=== PATIENT | male | born 1950 | race Caucasian/White ===

== ENCOUNTER → 2017-11-09 09:31 | Outpatient (CLI) | payer MEDICARE, OTHER, SELFPAY ==
[2017-11-09 12:27] LABS: Anion Gap 8 (5-15); BUN 17 mg/dL (7-18); BUN/Creat Ratio 14.3 RATIO (10-20); Calcium,Total 8.8 mg/dL (8.5-10.1); Chloride 112 mmol/L (98-107); Cholesterol 176 mg/dL (200); Creatinine, Serum 1.19 mg/dL (0.70-1.30); EST Glomerular Filtration Rate 65 mL/min (>60); Est Glom Filt Rate - Afr Amer 78 mL/min (>60); Glucose 92 mg/dL (74-106); High Density Lipoprotein 38 mg/dL; Potassium 4.2 mmol/L (3.5-5.1); Sodium Level 143 mmol/L (136-145); Triglycerides 205 mg/dL; Very Low Density Lipoprotein 41 mg/dL (5-40)
== END ==
PROVIDERS: Family Provider Family Medicine; PCP Family Medicine; Visit Provider Family Medicine
DX: I10 Essential (primary) hypertension (principal)
CPT/HCPCS: 36415; 80048; 80061

== ENCOUNTER → 2017-12-17 09:09 | Outpatient (CLI) | payer MEDICARE, OTHER, SELFPAY ==
[2017-12-17 11:06] LABS: Anion Gap 5 (5-15); BUN 21 mg/dL (7-18); BUN/Creat Ratio 14.4 RATIO (10-20); Calcium,Total 9.2 mg/dL (8.5-10.1); Chloride 108 mmol/L (98-107); Creatinine, Serum 1.46 mg/dL (0.70-1.30); EST Glomerular Filtration Rate 51 mL/min (>60); Est Glom Filt Rate - Afr Amer 62 mL/min (>60); Glucose 91 mg/dL (74-106); Potassium 4.2 mmol/L (3.5-5.1); Sodium Level 140 mmol/L (136-145)
== END ==
PROVIDERS: Family Provider Family Medicine; PCP Family Medicine; Visit Provider Family Medicine
DX: I10 Essential (primary) hypertension (principal)
CPT/HCPCS: 36415; 80048

== ENCOUNTER → 2018-06-14 08:56 | Outpatient (CLI) | payer MEDICARE, OTHER, SELFPAY ==
[2018-06-14 12:50] LABS: Anion Gap 13 (5-15); BUN 21 mg/dL (7-18); BUN/Creat Ratio 12.1 RATIO (10-20); Calcium,Total 8.8 mg/dL (8.5-10.1); Chloride 107 mmol/L (98-107); Cholesterol 179 mg/dL (200); Creatinine, Serum 1.73 mg/dL (0.70-1.30); EST Glomerular Filtration Rate 42 mL/min (>60); Est Glom Filt Rate - Afr Amer 51 mL/min (>60); Glucose 91 mg/dL (74-106); High Density Lipoprotein 37 mg/dL; Sodium Level 142 mmol/L (136-145); Triglycerides 135 mg/dL; Very Low Density Lipoprotein 27 mg/dL (5-40)
== END ==
PROVIDERS: Family Provider Family Medicine; PCP Family Medicine; Visit Provider Family Medicine
DX: I10 Essential (primary) hypertension (principal)
CPT/HCPCS: 36415; 80048; 80061

== ENCOUNTER → 2018-12-27 08:20 | Outpatient (CLI) | payer MEDICARE, OTHER, SELFPAY ==
[2018-12-27 10:35] LABS: Anion Gap 9 (5-15); BUN 27 mg/dL (7-18); BUN/Creat Ratio 13.9 RATIO (10-20); Calcium,Total 8.9 mg/dL (8.5-10.1); Chloride 108 mmol/L (98-107); Creatinine, Serum 1.94 mg/dL (0.70-1.30); EST Glomerular Filtration Rate 37 mL/min (>60); Est Glom Filt Rate - Afr Amer 44 mL/min (>60); Glucose 92 mg/dL (74-106); Potassium 4.1 mmol/L (3.5-5.1); Sodium Level 143 mmol/L (136-145)
== END ==
PROVIDERS: Family Provider Family Medicine; PCP Family Medicine; Visit Provider Family Medicine
DX: I10 Essential (primary) hypertension (principal)
CPT/HCPCS: 36415; 80048

== ENCOUNTER 2019-05-16 11:37 | Observation (INO) | payer MEDICARE, OTHER, SELFPAY ==
[2019-05-16] VITALS (11 sets, daily range): BP systolic 89–127; BP diastolic 64–77; PULSE 69–122; RESP 16–33; TEMP 36.7–36.8; O2SAT 94–99; BMI 28.4; BMI 26.5; BMI 26.6
--- NOTE | 2019-05-16 11:54 | EKG12_ITS ---
Test Reason : AM Blood Pressure : / mmHG Vent. Rate : 065 BPM Atrial Rate : 065 BPM P-R Int : 238 ms QRS Dur : 078 ms QT Int : 388 ms P-R-T Axes : 079 027 034 degrees QTc Int : 403 ms Sinus rhythm with 1st degree A-V block Low voltage QRS (Limb Leads) Confirmed by KAYE KLEIN, ODELL ([id number]), news assignment editor CHELSEA HOLMAN ([id number]) on 05/18/2019 10:01:33 AM Referred By: Nayan Woods Confirmed By:ODELL RESTREPO MD
--- NOTE | 2019-05-16 11:54 | RAD_ITS ---
STUDY: X-RAY CHEST REASON FOR EXAM: Male, 69 years old. Chest pain. TECHNIQUE: Single AP portable view of the chest. COMPARISON: None. FINDINGS: EKG electrodes are seen. The lungs are clear and expanded. There is no demonstrated pleural abnormality. Normal size heart. Normal mediastinum and rashida. Normal visualized pulmonary arteries. There is atherosclerotic tortuosity of the aortic arch and descending thoracic aorta. There is a mild levoscoliosis of the thoracic spine. Normal visualized ribs, clavicles, and shoulders. There is no demonstrated abnormality of the visualized soft tissue structures of the upper abdomen. RAD/Chest 1 View (Portable) IMPRESSION: No acute abnormality is seen. Electronically Signed: Johnathan Calderon, at 12:36 EDT , Service support ,
[2019-05-16 12:13] LABS: International Normalized Ratio 1.1; Prothrombin Time (Protime)PT. 13.5 SECONDS (11.7-14.9)
[2019-05-16 12:14] LABS: Partial Thromboplast Time 31.4 Seconds (24.1-36.2)
[2019-05-16 12:19] LABS: Absolute Lymphocyte Count 3.29 X10^3/uL (0.83-4.51); Absolute Neutrophil Count 5.8 X10^3/uL (2.0-7.7); Basophil# 0.03 X10^3/uL; Basophil% 0.3 % (0-1); Eosinophil# 0.02 X10^3/uL; Eosinophils% 0.2 % (0-5); Hematocrit 41.1 % (40-54); Hemoglobin 14.9 g/dL (13.0-16.5); Lymphocyte # 3.29 X10^3/ul (4.0); Lymphocyte % 33.9 % (19-41); Mean Corp Hgb Conc 36.3 g/dL (32-36); Mean Corpuscular Hgb 32.9 pg (27.0-32.0); Mean Corpuscular Volume 90.7 fL (80-94); Mean Platelet Vol. 9.5 fl (6.2-12.0); Monocyte# 0.52 X10^3/uL; Monocyte% 5.4 % (0-10); NRBC Flagged by Analyzer 0 % (0-5); Neutrophil # 5.81 X10^3/uL (2.7-7.7); Neutrophil % 59.8 % (47-70); Platelet Count 299 K/mm3 (150-450); RBC Distribution Width CV 12.7 % (11.6-14.6); RBC Distribution Width SD 42.4 fl (35.1-43.9); Red Blood Count 4.53 M/mm3 (4.6-6.2); White Blood Count 9.7 K/mm3 (4.4-11.0)
[2019-05-16] MEDS: 0.9% Normal Saline 1,000 ML 150 ML IV (12:25)
[2019-05-16] MEDS: LORazepam 2 MG/ML Syringe 0.5 MG IV (12:32)
--- NOTE | 2019-05-16 12:35 | ED.VIS.GEN ---
History of Present Illness Chief Complaint: Chest Pain Informant: Patient Onset: Today Context: Gradual Onset Timing: Continuous Current Severity: Moderate Maximum Severity: Moderate Narrative: The patient presents to the emergency department chest pain shortness of breath. Patient is a 69-year-old male medical history significant for hypertension. He states that he has been under a significant amount of stress lately. He states that today, he had to go to court. His has recently passed and there is a lot of questions over her will with her children which are his steps to the children. He states he is been significantly stressed. He went to the court house today and was having substernal chest heaviness and felt like he could not catch his breath. He states that he got up late be related to his anxiety. He is never had symptoms like this before. Squad was called. The patient was found to be tachycardic in an irregular rhythm. He denies any history of prior atrial fibrillation. He was given nitro which helped his pain. He states that he still feels persistently anxious. He has no history of coronary vascular disease. He does smoke. Prior similar symptoms: No Recent Illness/Hospitalization: No Past Medical History - Allergies and Home Meds Allergies/Adverse Reactions: Allergies No Known Allergies Allergy (Verified 05/16/19 11:38) Prior records reviewed: Yes Past Medical History: - - Hypertension Smoking Status: Current every day smoker - Family History Paternal Family History: Reports: Hypertension, - - no CAD Review of Systems General: Denies: Chills, Fever, Sweats Eyes: Denies: Visual changes - bilaterally, Diplopia ENT: Denies: Rhinorrhea, Sore throat Cardiovascular: Denies: Chest pain, Palpitations Respiratory: Denies: Dyspnea, Cough, Dyspnea on exertion Gastrointestinal: Denies: Abdominal pain, Nausea, Vomiting, Diarrhea, Melena, Hematochezia Genitourinary: Denies: Dysuria, Hematuria, Frequency Musculoskeletal: Denies: Back pain, Extremity Pain Skin: Denies: Rash, Wounds Neurological: Denies: Headache, Weakness, Numbness Physical Exam Vital Signs/Narrative: Vital Signs Temp Pulse Resp BP Pulse Ox 05/16/19 12:23 98 05/16/19 11:45 114 H 26 H 111/66 99 05/16/19 11:38 98.2 F 122 H 33 H 89/67 L 98 Inital Vital Signs reviewed: Yes General: Well nourished, Well developed, No Acute Distress Head: Normocephalic, Atraumatic Eyes: Perrl, EOMI ENT: Moist mucous membranes, No rhinorrhea Neck: Supple, Nontender Cardiovascular: No murmurs, Irregular, Tachycardia Respiratory: No distress, CTA bilaterally, Chest nontender Abdomen: Soft, Nontender, Nondistended, Normal bowel sounds Back: Nontender, Normal Inspection Extremities: Nontender, No edema Skin: Normal color, No rash Neurological: Alert, Oriented x3, Cranial nerves II-XII grossly intact, Normal Strength, Normal Sensation Psychological: Normal affect, Normal Mood Diagnostic/Tx/Re-eval Chest X-Ray - ED: 1 View, Normal, Heart, Lungs, Mediastinum Clinical Impression(s) from Imaging Studies Chest X-Ray 05/16/19 11:54 IMPRESSION: No acute abnormality is seen. Electronically Signed: Johnathan Kvng, at 12:36 EDT , Service support , Abnormal Lab Results 05/16/19 05/16/19 05/16/19 11:45 11:45 11:45 WBC 9.7 RBC 4.53 L Hgb 14.9 Hct 41.1 MCV 90.7 MCH 32.9 H MCHC 36.3 H RDW Std Deviation 42.4 RDW Coeff of Edi 12.7 Plt Count 299 MPV 9.5 Immature Gran % (Auto) 0.400 Neut % (Auto) 59.8 Lymph % (Auto) 33.9 [place] % (Auto) 5.4 Eos % (Auto) 0.2 Baso % (Auto) 0.3 Absolute Neuts (auto) 5.8 Absolute Lymphs (auto) 3.29 Nucleated RBC % 0 PT 13.5 INR 1.1 APTT 31.4 Sodium 134 L Potassium 2.7 L* Chloride 104 Carbon Dioxide 20.0 L Anion Gap 10 BUN 20 H Creatinine 1.90 H Estim Creat Clear Calc 36.69 Est GFR (MDRD) Af Amer 45 L Est GFR (MDRD) Non-Af 38 L BUN/Creatinine Ratio 10.5 Glucose 153 H Calcium 9.1 Magnesium Troponin I < 0.015 B-Natriuretic Peptide TSH 2.05 05/16/19 05/16/19 11:45 11:45 WBC RBC Hgb Hct MCV MCH MCHC RDW Std Deviation RDW Coeff of Edi Plt Count MPV Immature Gran % (Auto) Neut % (Auto) Lymph % (Auto) [place] % (Auto) Eos % (Auto) Baso % (Auto) Absolute Neuts (auto) Absolute Lymphs (auto) Nucleated RBC % PT INR APTT Sodium 137 Potassium 3.3 L Chloride 108 H Carbon Dioxide 25.0 Anion Gap 4 L BUN 20 H Creatinine 1.67 H Estim Creat Clear Calc 43.11 Est GFR (MDRD) Af Amer 53 L Est GFR (MDRD) Non-Af 44 L BUN/Creatinine Ratio 12.0 Glucose 94 Calcium 8.9 Magnesium 1.6 Troponin I B-Natriuretic Peptide 21.1 TSH - Rhythm Strip Rhythm Strip: Sinus Rhythm Rate: 110 Ectopy: PAC(s) - EKG Initial EKG Interpretation: No Acute Injury Pattern, Sinus Arrythmia, - - Initial EKG was read as A. fib. It does seem that this is sinus arrhythmia with PACs. - Medical Decision Making The patient is a 69-year-old male with no significant history of coronary vascular disease who presents to the emergency department chest pain and shortness of breath. EKG was initially read as A. fib. The patient was given fluids and Ativan. His EKG was repeated. This does seem to be more sinus with first-degree block and PACs. There are P waves before the QRS. Chest x-ray shows no evidence of volume overload. His initial cardiac enzymes were negative. The patient was found to be significantly hypokalemic. Given his age and risk factors, I do feel that he would benefit from admission for cardiac rule out. His potassium was replaced. The patient was discussed with the hospitalist. Impression 1. Chest pain 2. Hypokalemia ED Disposition - Plan for ED Patient: Disposition: Acute Care Hospital [facility]
[2019-05-16 12:51] LABS: BNP,B-Type NATRIURETIC PEPTIDE 21.1 pg/mL (0-100)
--- NOTE | 2019-05-16 12:53 | ED.RN ---
LAB CALLED TO REPORT k+ 2.7, DR. PEDROZA MADE AWARE.
[2019-05-16 12:54] LABS: Anion Gap 10 (5-15); BUN 20 mg/dL (7-18); BUN/Creat Ratio 10.5 RATIO (10-20); Calcium,Total 9.1 mg/dL (8.5-10.1); Chloride 104 mmol/L (98-107); EST Glomerular Filtration Rate 38 mL/min (>60); Est Glom Filt Rate - Afr Amer 45 mL/min (>60); Estimated Creatinine Clearance 36.69 ml/min; Glucose 153 mg/dL (74-106); Potassium 2.7 mmol/L (3.5-5.1); Sodium Level 134 mmol/L (136-145); Thyroid Stim Hormone (TSH) 2.05 uIU/mL (0.358-3.74)
--- NOTE | 2019-05-16 12:59 | EKG12_ITS ---
Test Reason : ADMISSION-CP Blood Pressure : / mmHG Vent. Rate : 095 BPM Atrial Rate : 095 BPM P-R Int : 206 ms QRS Dur : 084 ms QT Int : 344 ms P-R-T Axes : 076 023 058 degrees QTc Int : 432 ms Sinus rhythm with Premature atrial complexes Nonspecific ST-Segment Abnormality Confirmed by KAYE KLEIN, ODELL ([id number]), city editor CHELSEA HOLMAN ([id number]) on 05/18/2019 10:06:00 AM Referred By: Nayan Woods Confirmed By:ODELL RESTREPO MD
--- NOTE | 2019-05-16 13:57 | HP.PCM_ITS ---
Problem List (1) Chest pain Status: Acute Qualifiers: Chest pain type: unspecified Qualified Code(s): R07.9 - Chest pain, unspecified (2) Hypokalemia Status: Acute History of Present Illness Date of Admission: 05/16/19 Chief Complaint: chest pain The patient is a 69 year old M 1 day history of chest pain. Patient's a couple months ago and is being sued by stepson in regards to her estate. Patient was having chest pain when he got into his car going to the court house got worse and when he arrived patient appeared pale, with short of breath and was still having this chest pain. Presented to the emergency room and EKG was read by the machine as A. fib but it looks more sinus tach with PACs. Patient was noted to be hypokalemic, with a potassium of 2.7. Patient did receive 60 mEq of potassium chloride in the emergency room. Patient states that his chest pain has quite resolved. Patient states that he has been under a lot of stress lately with the recent passing of his and being sued by his stepson and but denies ever having had a panic attack or chest pain like this previously. [] Past Medical History Medical History: Medical History (Last Updated 05/16/19 @ 14:00 by Nayan Woods DO) HTN (hypertension) I10 Allergies No Known Allergies Allergy (Verified 05/16/19 11:38) Home Medications: Ambulatory Orders Medication Instructions Recorded Aspirin [Adult Low Dose Aspirin EC] 81 mg PO DAILY 12/05/16 Cholecalciferol (Vitamin D3) 1 capsule PO DAILY 12/05/16 [Vitamin D3] Gluc Richter/Chondro Richter A/Vit C/Mn 1 each PO DAILY 12/05/16 [Glucosamine-Chondroitin Cap] Losartan Potassium 100 mg PO DAILY 12/05/16 Metoprolol Succinate 50 mg PO DAILY 12/05/16 Multivitamin [Multiple Vitamins] 1 each PO DAILY 12/05/16 [place]-3 Fatty Acids/Fish Oil [Fish 1 each PO DAILY 12/05/16 Oil 1,000 mg Capsule] Vitamin B Complex/Folic Acid 0.4 mg PO DAILY 12/05/16 [Super B Maxi Complex Caplet] Vitamin E 400 units PO DAILY 12/05/16 Losartan Potassium 100 mg PO 05/16/19 Lives: Alone Smoking Status: Light Smoker (<10/day) Tobacco Use: Cigars Alcohol: None Drugs: None - *Family History Paternal History Items: Hypertension, - - no CAD Review of Systems Constitutional: Denies: Anorexia, Chills, Fever Eyes: Denies: Blurred vision, Double vision HEENT: Denies: Head Aches, Sinus Congestion, Sinus Drainage Cardiovascular: Reports: Chest Pain. Denies: Edema Respiratory: Reports: Shortness of Breath. Denies: Cough, Sputum production Gastrointestinal: Denies: Abdominal Pain, Nausea, Vomiting Genitourinary: Denies: Dysuria Musculoskeletal: Denies: Joint Pain, Joint Tenderness Skin: Denies: Rash, Wounds Neurological: Denies: Numbness, Tingling, Focal weakness Psychiatric: Denies: Anxiety, Depression, Homicidal Ideations, Suicidal Ideations Endocrine: Reports: Change in Body Habitus - lost greater than 10# in past 2 months Hematologic/ Lymphatic: Denies: Easy Bruising, Easy Bleeding, Hx of blood clot Comment: All review systems are otherwise negative except for as mentioned above and in the HPI. VTE Information - Inpt Only VTE Present on Admission: No VTE Mechan Device Prophylaxis: None VTE Pharm Prophylaxis ordered?: No Patient Problems: Active and Suspected Problems (Last Updated 05/16/19 @ 14:00 by Nayan Woods DO) Chest pain (Acute) Hypokalemia (Acute) - Physical Exam Vitals/I&O's: Vital Signs Temp Pulse Resp BP Pulse Ox 36.8 C 99 19 H 105/64 95 05/16/19 11:38 05/16/19 13:02 05/16/19 13:02 05/16/19 13:02 05/16/19 13:02 Oxygen Delivery Method Room Air Weight: 87.3 kg Body Mass Index (BMI) 28.4 Intake and Output for Last 24 Hours 05/14/19 05/15/19 05/16/19 23:59 23:59 23:59 Intake Total 1000 / 1000 Balance 1000 / 1000 General: Alert, Cooperative, No apparent distress, Well developed, Well nourished HEENT: Atraumatic Oral: Moist Mucosa, No Gingival or Mucosal Lesions/ Ulcerations Neck: Negative Carotid Bruits, No Nodes, Trachea Midline Lungs: Clear to auscultation, Normal air movement, No rhonchi, No wheeze Cardiovascular: Regular rate, Regular Rhythm, Normal S1, Normal S2 Abdomen: Bowel Sounds Present, Soft, Non Tender, Non-Distended, No Hepato- splenomegaly Extremities: No edema, No Calf Tenderness Skin: No rashes, No breakdown Musculoskeletal: No Tenderness to Palpation of Joints or Extremities, No Muscle Wasting Neurological: Deep Tendon Reflexes 2+/4 and Symmetrical, Sensory exam intact to light touch and pain Psych/Mental Status: Normal Affect, Appropriate Laboratory Results 05/16/19 11:45: WBC 9.7, RBC 4.53 L, Hgb 14.9, Hct 41.1, MCV 90.7, MCH 32.9 H, MCHC 36.3 H, RDW Std Deviation 42.4, RDW Coeff of Edi 12.7, Plt Count 299, MPV 9.5, Immature Gran % (Auto) 0.400, Neut % (Auto) 59.8, Lymph % (Auto) 33.9, [place] % (Auto) 5.4, Eos % (Auto) 0.2, Baso % (Auto) 0.3, Absolute Neuts (auto) 5.8, Absolute Lymphs (auto) 3.29, Nucleated RBC % 0 05/16/19 11:45: PT 13.5, INR 1.1, APTT 31.4 05/16/19 11:45: Sodium 134 L, Potassium 2.7 L*, Chloride 104, Carbon Dioxide 20.0 L, Anion Gap 10, BUN 20 H, Creatinine 1.90 H, Estim Creat Clear Calc 36.69, Est GFR (MDRD) Af Amer 45 L, Est GFR (MDRD) Non-Af 38 L, BUN/Creatinine Ratio 10.5, Glucose 153 H, Calcium 9.1, Troponin I < 0.015, TSH 2.05 05/16/19 11:45: B-Natriuretic Peptide 21.1 EKG reviewed and shows sinus tachycardia with PACs no atrial fibrillation noted. Chest x-ray reviewed and showed no acute pulmonary disease. Current Medications Sodium Chloride () 1,000 mls @ 150 mls/hr IV .[id number] [facility] Last Infusion: 05/16/19 13:30 Dose: Infused Documented by: Assessment/Plan All Active Problems (Last Updated 05/16/19 @ 14:00 by Nayan Woods DO) Chest pain (Acute) Hypokalemia (Acute) 1. Chest pain * MITCHEL score of 3, heart score of 4 * Symptoms seem more consistent with an actual panic attack given the timing with the patient's actually going to court and got worse when he was at the actual court house. But given his risk factors of hypertension and tobacco use, patient will be brought in and patient will undergo a nuclear stress test on the . * Patient received aspirin in the emergency room and I will continue on floor. * Cycle enzymes 2. Hypokalemia * Likely due to the water pill that patient is on. * Patient received 60 mEq of oral potassium in the emergency room. We will recheck his potassium as well as magnesium this afternoon and replace if still low. 3. VTE prophylaxis: Low risk as patient is observation status at this time and therefore not indicated 4. Advanced care planning: Discussed with patient. Patient wishes to be full CODE STATUS at this time. Code Visit OBSV E&M: [id number] Initial observation care L3
--- NOTE | 2019-05-16 14:00 | EKG12_ITS ---
Test Reason : CP Blood Pressure : / mmHG Vent. Rate : 113 BPM Atrial Rate : 113 BPM P-R Int : 000 ms QRS Dur : 078 ms QT Int : 300 ms P-R-T Axes : 000 034 058 degrees QTc Int : 411 ms Normal sinus rhythm with frequent PAC's Nonspecific ST and T wave abnormality Abnormal ECG Confirmed by ROCHELLE JORDAN ([id number]), commissioning editor CHELSEA HOLMAN ([id number]) on 05/23/2019 9:07:47 AM Referred By: Nayan Woods Confirmed By:ROCHELLE JORDAN
[2019-05-16 14:24] LABS: Magnesium 1.6 mg/dL (1.6-2.6)
[2019-05-16 16:03] LABS: Anion Gap 4 (5-15); BUN 20 mg/dL (7-18); Calcium,Total 8.9 mg/dL (8.5-10.1); Chloride 108 mmol/L (98-107); Creatinine, Serum 1.67 mg/dL (0.70-1.30); EST Glomerular Filtration Rate 44 mL/min (>60); Est Glom Filt Rate - Afr Amer 53 mL/min (>60); Estimated Creatinine Clearance 43.11 ml/min; Glucose 94 mg/dL (74-106); Potassium 3.3 mmol/L (3.5-5.1); Sodium Level 137 mmol/L (136-145)
[2019-05-16 16:09] LABS: Anion Gap 5 (5-15); BUN 19 mg/dL (7-18); BUN/Creat Ratio 11.7 RATIO (10-20); Calcium,Total 8.8 mg/dL (8.5-10.1); Chloride 108 mmol/L (98-107); Creatinine, Serum 1.63 mg/dL (0.70-1.30); EST Glomerular Filtration Rate 45 mL/min (>60); Est Glom Filt Rate - Afr Amer 54 mL/min (>60); Estimated Creatinine Clearance 44.16 ml/min; Glucose 94 mg/dL (74-106); Potassium 3.3 mmol/L (3.5-5.1); Sodium Level 137 mmol/L (136-145)
[2019-05-17 01:05] VITALS: BP 95/63; PULSE 68; RESP 16; TEMP 36.6; O2SAT 95
[2019-05-17 03:19] VITALS: PULSE 53
[2019-05-17 04:50] VITALS: BP 110/68; PULSE 70; RESP 16; TEMP 36.9; O2SAT 97
[2019-05-17] MEDS: Aspirin E.C. 81 MG Tablet PO (04:51)
[2019-05-17] MEDS: Losartan Potassium 100 MG Tablet PO (04:53)
--- NOTE | 2019-05-17 05:55 | EKG12_ITS ---
Test Reason : REPEAT Blood Pressure : / mmHG Vent. Rate : 092 BPM Atrial Rate : 092 BPM P-R Int : 210 ms QRS Dur : 090 ms QT Int : 356 ms P-R-T Axes : 069 013 043 degrees QTc Int : 440 ms Sinus rhythm with 1st degree A-V block with Premature atrial complexes Otherwise normal ECG Confirmed by ROCHELLE JORDAN ([id number]), editor managing newspaper CHELSEA HOLMAN ([id number]) on 05/23/2019 9:13:14 AM Referred By: Nayan Woods Confirmed By:ROCHELLE JORDAN
[2019-05-17 06:22] LABS: Anion Gap 5 (5-15); BUN 19 mg/dL (7-18); BUN/Creat Ratio 11.9 RATIO (10-20); Calcium,Total 8.6 mg/dL (8.5-10.1); Chloride 112 mmol/L (98-107); Cholesterol 179 mg/dL (200); Creatinine, Serum 1.59 mg/dL (0.70-1.30); EST Glomerular Filtration Rate 46 mL/min (>60); Est Glom Filt Rate - Afr Amer 56 mL/min (>60); Estimated Creatinine Clearance 45.27 ml/min; Glucose 100 mg/dL (74-106); High Density Lipoprotein 30 mg/dL; Potassium 3.7 mmol/L (3.5-5.1); Sodium Level 138 mmol/L (136-145); Triglycerides 163 mg/dL; Very Low Density Lipoprotein 33 mg/dL (5-40)
[2019-05-17 07:01] VITALS: PULSE 61
[2019-05-17 10:50] VITALS: BP 127/86; PULSE 84; RESP 18; TEMP 36.7; O2SAT 98
--- NOTE | 2019-05-17 11:34 | STRESSREP_ITS ---
Stress Test Report Date: 05-17-19 Procedure: Pharmacologic stress nuclear imaging study Indications: Chest pain; shortness of breath/dyspnea Consent: Per the patient Procedure: The patient underwent pharmacologic (Regadenoson) evaluation with a peak heart rate of 98 beats per minute (64 %predicted maximal heart rate) and a peak blood pressure of 144/78 mmHg. The baseline ECG demonstrated normal sinus rhythm. The peak pharmacologic ECG demonstrated no obvious ECG changes. There was a rare PVC during recovery. There was no complaint of chest discomfort during pharmacologic infusion or recovery. The examination was discontinued secondary to completion of protocol. Impression: 1. Pharmacologic (Regadenoson) evaluation 2. Peak pharmacologic ECG with no obvious ECG changes. 3. There was a rare PVC during recovery. 4. Nuclear images pending Myocardial perfusion imaging study: Technique: The patient was injected with 12.0 millicuries of technetium 99m Cardiolite and subsequently rest SPECT Cardiolite nuclear imaging was obtained in the horizontal long, vertical long, and short axis views. The patient underwent pharmacologic (Regadenoson) evaluation with a peak heart rate of 98 beats per minute (64 % percent predicted maximal heart rate) and a peak blood pressure of 144/78 mmHg. The patient was injected with 34.0 millicuries of technetium 99m Cardiolite and subsequently stress SPECT Cardiolite nuclear imaging was obtained in the horizontal long, vertical long, and short axis views. A gated Cardiolite study at peak stress was obtained. Interpretation: Rest and stress SPECT Cardiolite nuclear imaging status post realignment, normalization, and attenuation correction demonstrate relative uniform tracer uptake and myocardial perfusion appearing within normal limits. There is end systolic thickening and brightening. The gated Cardiolite study demonstrates myocardial thickening and inward wall motion. The reported LVEF is 76 %. Impression: 1. Rest and stress SPECT Cardiolite nuclear imaging demonstrate relative uniform tracer uptake and myocardial perfusion appearing within normal limits. 2. The gated Cardiolite study reports an LVEF of 76 %. This note was generated with [employer] software. It may contain incorrect words, spelling, and punctuation that were not noted in checking the note before signing.
--- NOTE | 2019-05-17 11:58 | DCINST_ITS ---
- Discharge Diagnoses Current Active Problems: Current Active and Chronic Problems (Last Updated 05/16/19 @ 14:00 by Nayan Woods DO) Chest pain (Acute) Hypokalemia (Acute) You will use the following diet at home:: No restrictions Discharge Activity: Return to Normal Activity Call your doctor if you observe: Shortness of breath, Dizziness, Fainting spells, Chest pain Allergies/Adverse Reactions: Allergies No Known Allergies Allergy (Verified 05/16/19 11:38) Medications to take at Discharge Aspirin [Adult Low Dose Aspirin EC] 81 mg PO DAILY 12/05/16 Multivitamin [Multiple Vitamins] 1 each PO DAILY 12/05/16 Chlorthalidone 25 mg PO DAILY 05/16/19 Losartan Potassium 100 mg PO DAILY 05/16/19 Lorazepam [Ativan] 0.5 mg PO BID PRN #15 tablet 05/17/19 The following prescriptions were given: Lorazepam [Ativan] 0.5 mg PO BID PRN #15 tablet PRN Reason: Anxiety Transmission Status: Sent to [id number] Primary Care Physician: Jung Bennett MD [Primary Care Provider] - Please follow up with your Primary Care Physician in: 1 Week Test Results: Test results from this visit will be discussed in further detail at your follow- up appointment, if applicable. Proposed Discharge Date: 05/17/19
--- NOTE | 2019-05-17 12:50 | DS.PCM_ITS ---
<Gladis Rivero - Last Filed: 05/17/19 12:56> Discharge Date and Diagnosis Date of Admission: 05/16/19 Date of Discharge: 05/17/19 - Primary Discharge Diagnosis Active and Suspected Problems (Last Updated 05/16/19 @ 14:00 by Nayan Woods DO) 1. Chest pain secondary to panic attack, cardiac etiology ruled out 2. Hypokalemia, resolved 3. Chronic kidney disease stage III 4. Hypertension Hospital Course and Treatment Imaging Results: Diagnostic Data Chest X-Ray 05/16/19 11:54 IMPRESSION: No acute abnormality is seen. Electronically Signed: Johnathan Calderon, at 12:36 EDT , Service support , Operations: None Procedures: Stress test Summary of Care Provided: The patient is a 69 year old M admitted 05/16/2019 due to chest pain. 1. Chest pain secondary to panic attack, cardiac etiology ruled out-troponin negative. EKG without ST-T changes. Stress test negative for ischemia, LVEF 76%. Patient reports his in February and his stepson is taking him to court. He was at court yesterday when his symptoms occurred. Patient tearful during examination and reports he has been under a lot of stress. Patient given prescription for brief course of as needed Ativan. Follow-up with primary care provider in 1 week. 2. Hypokalemia, resolved-replace per protocol. 3. Chronic kidney disease stage III-at baseline. 4. Hypertension-stable, continue home chlorthalidone and losartan regimen. General: Alert, Cooperative, No apparent distress, Well developed, Well nourished HEENT: Atraumatic Oral: Moist Mucosa, No Gingival or Mucosal Lesions/ Ulcerations Neck: Negative Carotid Bruits, No Nodes, Trachea Midline Lungs: Clear to auscultation, Normal air movement, No rhonchi, No wheeze Cardiovascular: Regular rate, Regular Rhythm, Normal S1, Normal S2 Abdomen: Bowel Sounds Present, Soft, Non Tender, Non-Distended, No Hepato- splenomegaly Extremities: No edema, No Calf Tenderness Skin: No rashes, No breakdown Musculoskeletal: No Tenderness to Palpation of Joints or Extremities, No Muscle Wasting Neurological: Deep Tendon Reflexes 2+/4 and Symmetrical, Sensory exam intact to light touch and pain Psych/Mental Status: Normal Affect, Appropriate Patient seen and examined prior to discharge. Physical assessment as noted above. Patient is stable for discharge with follow up recommendations as noted above. This patient was seen by ALLA Shaver under the supervision of Dr. Corea. - Physical Exam Vitals/I&O's: Vital Signs Temp Pulse Resp BP Pulse Ox 98.1 F 84 18 127/86 H 98 05/17/19 10:50 05/17/19 10:50 05/17/19 10:50 05/17/19 10:50 05/17/19 10:50 Oxygen Delivery Method Room Air Weight: 185 lb 3.013 oz Body Mass Index (BMI) 26.5 Intake and Output for Last 24 Hours 05/15/19 05/16/19 05/17/19 23:59 23:59 23:59 Intake Total 1464 / 1464 360 / 360 Balance 1464 / 1464 360 / 360 Laboratory Results 05/16/19 11:45: Sodium 134 L, Potassium 2.7 L*, Chloride 104, Carbon Dioxide 20.0 L, Anion Gap 10, BUN 20 H, Creatinine 1.90 H, Estim Creat Clear Calc 36.69, Est GFR (MDRD) Af Amer 45 L, Est GFR (MDRD) Non-Af 38 L, BUN/Creatinine Ratio 10.5, Glucose 153 H, Calcium 9.1, Troponin I < 0.015, TSH 2.05 05/16/19 11:45: B-Natriuretic Peptide 21.1 05/16/19 11:45: Sodium 137, Potassium 3.3 L, Chloride 108 H, Carbon Dioxide 25.0, Anion Gap 4 L, BUN 20 H, Creatinine 1.67 H, Estim Creat Clear Calc 43.11, Est GFR (MDRD) Af Amer 53 L, Est GFR (MDRD) Non-Af 44 L, BUN/Creatinine Ratio 12.0, Glucose 94, Calcium 8.9, Magnesium 1.6 05/16/19 14:55: Sodium 137, Potassium 3.3 L, Chloride 108 H, Carbon Dioxide 24.0, Anion Gap 5, BUN 19 H, Creatinine 1.63 H, Estim Creat Clear Calc 44.16, Est GFR (MDRD) Af Amer 54 L, Est GFR (MDRD) Non-Af 45 L, BUN/Creatinine Ratio 11.7, Glucose 94, Calcium 8.8, Troponin I < 0.015 05/16/19 18:10: Troponin I < 0.015 05/17/19 05:42: Sodium 138, Potassium 3.7, Chloride 112 H, Carbon Dioxide 21.0, Anion Gap 5, BUN 19 H, Creatinine 1.59 H, Estim Creat Clear Calc 45.27, Est GFR (MDRD) Af Amer 56 L, Est GFR (MDRD) Non-Af 46 L, BUN/Creatinine Ratio 11.9, Glucose 100, Calcium 8.6, Triglycerides 163, Cholesterol 179, LDL Cholesterol 116, VLDL Cholesterol 33, HDL Cholesterol 30 L Current Medications Acetaminophen (Tylenol) 650 mg PO Q6H PRN PRN PRN Reason: Pain Score 1-5/Temp > 100.7 F Aspirin (Ecotrin) 81 mg PO DAILY@0800 [facility] Last Admin: 05/17/19 04:51 Dose: 81 mg Documented by: Dextrose (D50w Syringe) 0 gm IV X1 PRN; Protocol PRN Reason: Hypoglycemia Glucagon () 1 mg IM .X1 PRN PRN Reason: Hypoglycemia Losartan Potassium (Cozaar) 100 mg PO DAILY [facility] Last Admin: 05/17/19 04:53 Dose: 100 mg Documented by: Melatonin (Melatonin) 3 mg PO QHS PRN PRN PRN Reason: INSOMNIA Morphine Sulfate () 2 mg IV Q3H PRN PRN PRN Reason: Pain Score 6-10/10 Multivitamins (Multivitamin) 1 tablet PO DAILY@0800 [facility] Nitroglycerin (Nitrostat) 0.4 mg SUBLINGUAL Q5M PRN PRN Reason: CARDIAC/CHEST PAIN Ondansetron HCl (Zofran) 4 mg IV Q8H PRN PRN PRN Reason: NAUSEA/VOMITING Discharge Diet: No Restrictions Discharge Activity: Return to Normal Activity Call your doctor if you observe: Shortness of breath, Dizziness, Fainting spells, Chest pain Home Medications: Medications to take at Discharge Aspirin [Adult Low Dose Aspirin EC] 81 mg PO DAILY 12/05/16 Multivitamin [Multiple Vitamins] 1 each PO DAILY 12/05/16 Chlorthalidone 25 mg PO DAILY 05/16/19 Losartan Potassium 100 mg PO DAILY 05/16/19 Lorazepam [Ativan] 0.5 mg PO BID PRN #15 tab 05/17/19 Following Prescrptions Were Given to Patient: Lorazepam [Ativan] 0.5 mg PO BID PRN #15 tab PRN Reason: Anxiety Transmission [id number] Primary Care Physician: Jung Bennett MD [Primary Care Provider] - Please follow up with your Primary Care Physician in: 1 Week Disposition: Home Minutes spent on discharge:: 35 Patient Condition:: Stable Medical Necessity - Tobacco Use Smoking Status: Light Smoker (<10/day) Tobacco Use: Cigars Meaningful Use Info Meaningful Use Diagnoses (Choose all that apply): None applicable <Loc Corea E - Last Filed: 05/17/19 13:32> Hospital Course and Treatment Imaging Results: 05/17/19 05:55 Nuclear Stress Test - Chemical [NM] Routine Summary of Care Provided: Hospitalist note: Discharge summary above reviewed and I agree with the above discharge and treatment plan. Patient admitted for chest pain for evaluation. His EKG revealed no acute ischemic changes. His troponin was negative x3. Chest x-ray showed no acute findings. Lipid profile revealed total cholesterol of 179, LDL cholesterol of 116 and HDL cholesterol of 30. TSH was normal. Patient underwent nuclear stress test that showed no evidence of stress-induced myocardial ischemia and gated ejection fraction was 76%. Patient admitted that when he had a chest pain yesterday, he had lots of stress and anxiety and he was panicking because he was going to a court house. ACS ruled out. His symptoms attributed to anxiety and panic attack. Patient discharged home in a stable condition, discharged on his previous home medications without any changes, recommended follow-up with PCP in 1 week. - Physical Exam General: Alert, Oriented x3, Cooperative, No apparent distress. HEENT: Atraumatic, PERRLA, EOMI. Neck: Supple, No JVD, Negative Carotid Bruits, Trachea Midline, Thyroid Normal. Lungs: Clear to auscultation, Normal air movement, No rhonchi, No wheeze, No rales. Cardiovascular: Regular rate, Regular Rhythm, Normal S1, Normal S2, PMI Normal. Abdomen: Bowel Sounds Present, Soft, Non Tender, Non-Distended, No Hepato-splenomegaly. Extremities: No clubbing, No cyanosis, No edema Skin: No rashes, No breakdown Neurological: Cranial nerves are intact, neuro grossly intact Vital Signs are stable. This note was generated with [employer] dictation software. It may contain incorrect words, spelling, and punctuation that were not noted in checking the note before signing. - Physical Exam Vitals/I&O's: Vital Signs Temp Pulse Resp BP Pulse Ox 98.1 F 84 18 127/86 H 98 05/17/19 10:50 05/17/19 10:50 05/17/19 10:50 05/17/19 10:50 05/17/19 10:50 Oxygen Delivery Method Room Air Weight: 185 lb 3.013 oz Body Mass Index (BMI) 26.5 Intake and Output for Last 24 Hours 05/15/19 05/16/19 05/17/19 23:59 23:59 23:59 Intake Total 1464 / 1464 360 / 360 Balance 1464 / 1464 360 / 360 Laboratory Results 05/16/19 11:45: Sodium 137, Potassium 3.3 L, Chloride 108 H, Carbon Dioxide 25.0, Anion Gap 4 L, BUN 20 H, Creatinine 1.67 H, Estim Creat Clear Calc 43.11, Est GFR (MDRD) Af Amer 53 L, Est GFR (MDRD) Non-Af 44 L, BUN/Creatinine Ratio 12.0, Glucose 94, Calcium 8.9, Magnesium 1.6 05/16/19 14:55: Sodium 137, Potassium 3.3 L, Chloride 108 H, Carbon Dioxide 24.0, Anion Gap 5, BUN 19 H, Creatinine 1.63 H, Estim Creat Clear Calc 44.16, Est GFR (MDRD) Af Amer 54 L, Est GFR (MDRD) Non-Af 45 L, BUN/Creatinine Ratio 11.7, Glucose 94, Calcium 8.8, Troponin I < 0.015 05/16/19 18:10: Troponin I < 0.015 05/17/19 05:42: Sodium 138, Potassium 3.7, Chloride 112 H, Carbon Dioxide 21.0, Anion Gap 5, BUN 19 H, Creatinine 1.59 H, Estim Creat Clear Calc 45.27, Est GFR (MDRD) Af Amer 56 L, Est GFR (MDRD) Non-Af 46 L, BUN/Creatinine Ratio 11.9, Glucose 100, Calcium 8.6, Triglycerides 163, Cholesterol 179, LDL Cholesterol 116, VLDL Cholesterol 33, HDL Cholesterol 30 L Current Medications Acetaminophen (Tylenol) 650 mg PO Q6H PRN PRN PRN Reason: Pain Score 1-5/Temp > 100.7 F Aspirin (Ecotrin) 81 mg PO DAILY@0800 [facility] Last Admin: 05/17/19 04:51 Dose: 81 mg Documented by: Dextrose (D50w Syringe) 0 gm IV X1 PRN; Protocol PRN Reason: Hypoglycemia Glucagon () 1 mg IM .X1 PRN PRN Reason: Hypoglycemia Losartan Potassium (Cozaar) 100 mg PO DAILY [facility] Last Admin: 05/17/19 04:53 Dose: 100 mg Documented by: Melatonin (Melatonin) 3 mg PO QHS PRN PRN PRN Reason: INSOMNIA Morphine Sulfate () 2 mg IV Q3H PRN PRN PRN Reason: Pain Score 6-10/10 Multivitamins (Multivitamin) 1 tablet PO DAILY@0800 [facility] Nitroglycerin (Nitrostat) 0.4 mg SUBLINGUAL Q5M PRN PRN Reason: CARDIAC/CHEST PAIN Ondansetron HCl (Zofran) 4 mg IV Q8H PRN PRN PRN Reason: NAUSEA/VOMITING Disposition: Home Minutes spent on discharge:: 25 Patient Condition:: Stable Meaningful Use Info Meaningful Use Diagnoses (Choose all that apply): None applicable Code Visit OBSV E&M: 67869 Observation care discharge
== END 2019-05-17 11:58 | disposition home or self-care (01) ==
LOC: ED 12:18 → PCU 13:30
PROVIDERS: Emergency Provider Emergency Medicine; Family Provider Family Medicine; PCP Family Medicine; Visit Provider Hospitalist
DX: R07.89 Other chest pain (principal); R06.02 Shortness of breath; F17.290 Nicotine dependence, other tobacco product, uncomplicated; E87.6 Hypokalemia; I49.1 Atrial premature depolarization; I12.9 Hypertensive chronic kidney disease with stage 1 through stage 4 chronic kidney disease, or unspecified chronic kidney disease; N18.3 Chronic kidney disease, stage 3 (moderate); Z79.899 Other long term (current) drug therapy; Z79.82 Long term (current) use of aspirin
CPT/HCPCS: 36415; 71045; 78452; 80048; 80061; 83735; 83880; 84443; 84484; 85025; 85610; 85730; 93005; 93017; 96374; 99218; 99285; A9500; J7030; A4216; G0378; J2785

== ENCOUNTER → 2020-06-25 09:22 | Outpatient (CLI) | payer MEDICARE, OTHER, SELFPAY ==
[2019-05-16 14:06] VITALS: BMI 26.5
[2020-06-25 11:28] LABS: Anion Gap 4 (5-15); BUN 24 mg/dL (7-18); BUN/Creat Ratio 15.3 RATIO (10-20); Calcium,Total 9.6 mg/dL (8.5-10.1); Chloride 108 mmol/L (98-107); Cholesterol 193 mg/dL (200); Creatinine, Serum 1.57 mg/dL (0.70-1.30); EST Glomerular Filtration Rate 47 mL/min (>60); Est Glom Filt Rate - Afr Amer 56 mL/min (>60); Glucose 85 mg/dL (74-106); High Density Lipoprotein 37 mg/dL; Potassium 3.5 mmol/L (3.5-5.1); Sodium Level 140 mmol/L (136-145); Triglycerides 132 mg/dL; Very Low Density Lipoprotein 26 mg/dL (5-40)
== END ==
PROVIDERS: PCP Family Medicine; Referring Provider Family Medicine; Visit Provider Family Medicine
DX: I10 Essential (primary) hypertension (principal)
CPT/HCPCS: 36415; 80048; 80061

== ENCOUNTER → 2020-12-24 09:07 | Outpatient (CLI) | payer MEDICARE, OTHER, SELFPAY ==
[2019-05-16 14:06] VITALS: BMI 26.5
[2020-12-24 11:08] LABS: Anion Gap 9 (5-15); BUN 29 mg/dL (7-18); BUN/Creat Ratio 17.6 RATIO (10-20); Calcium,Total 8.9 mg/dL (8.5-10.1); Chloride 103 mmol/L (98-107); Cholesterol 188 mg/dL (200); Creatinine, Serum 1.65 mg/dL (0.70-1.30); EST Glomerular Filtration Rate 44 mL/min (>60); Est Glom Filt Rate - Afr Amer 53 mL/min (>60); Glucose 88 mg/dL (74-106); High Density Lipoprotein 35 mg/dL; Potassium 3.7 mmol/L (3.5-5.1); Sodium Level 139 mmol/L (136-145); Triglycerides 155 mg/dL; Very Low Density Lipoprotein 31 mg/dL (5-40)
== END ==
PROVIDERS: PCP Family Medicine; Visit Provider Family Medicine
DX: I10 Essential (primary) hypertension (principal)
CPT/HCPCS: 36415; 80048; 80061

== ENCOUNTER → 2021-06-26 09:43 | Outpatient (CLI) | payer MEDICARE, OTHER, SELFPAY ==
[2021-06-26 12:44] LABS: Anion Gap 9 (5-15); BUN 22 mg/dL (7-18); BUN/Creat Ratio 12.3 RATIO (10-20); Calcium,Total 9.4 mg/dL (8.5-10.1); Chloride 103 mmol/L (98-107); Creatinine, Serum 1.79 mg/dL (0.70-1.30); EST Glomerular Filtration Rate 40 mL/min (>60); Est Glom Filt Rate - Afr Amer 48 mL/min (>60); Glucose 89 mg/dL (74-106); Potassium 3.2 mmol/L (3.5-5.1); Sodium Level 138 mmol/L (136-145)
== END ==
PROVIDERS: PCP Family Medicine; Referring Provider Family Medicine; Visit Provider Family Medicine
DX: I10 Essential (primary) hypertension (principal)
CPT/HCPCS: 36415; 80048

== ENCOUNTER 2022-09-21 22:55 | Emergency (ER) | payer MEDICARE, OTHER, SELFPAY ==
[2022-09-21 22:56] VITALS: BP 119/83; PULSE 138; RESP 30; TEMP 35.6; BMI 25.0
--- NOTE | 2022-09-21 23:03 | EKG12_ITS ---
Test Reason : SOB Blood Pressure : / mmHG Vent. Rate : 141 BPM Atrial Rate : 000 BPM P-R Int : 000 ms QRS Dur : 084 ms QT Int : 322 ms P-R-T Axes : 000 034 252 degrees QTc Int : 493 ms Atrial fibrillation with rapid ventricular response with premature ventricular or aberrantly conducte d complexes ST & T wave abnormality, consider inferior ischemia Abnormal ECG Confirmed by ALEXA KLEIN, OCTAVIO ([id number]), editor at large CHELSEA HOLMAN ([id number]) on 09/23/2022 7:56:47 AM Referred By: SABIHA Confirmed By:OCTAVIO LIU MD
--- NOTE | 2022-09-21 23:03 | RAD_ITS ---
STUDY: X-RAY CHEST REASON FOR EXAM: Male, 72 years old patient with shortness of breath. TECHNIQUE: Single AP portable view of the chest. COMPARISON: Chest radiograph dated May 16 2019. FINDINGS: Cardiac monitoring leads are present. The right lung is hyperexpanded. There is elevation of left hemidiaphragm. There is heterogeneous left-sided airspace consolidation on glass attenuation scattered throughout the left lung. There is also suggestion of patchy right basilar heterogeneous ground glass attenuation in addition to interstitial thickening. There appears to be small left-sided pleural effusion. There is borderline cardiomegaly. Normal mediastinum and rashida. Normal visualized pulmonary arteries. There is atherosclerotic tortuosity of the aortic arch and descending thoracic aorta. There is demineralization of the osseous structures. Normal visualized ribs, clavicles, and shoulders. There is no demonstrated abnormality of the visualized soft tissue structures of the upper abdomen. RAD/Chest 1 View (Portable) IMPRESSION: 1. Multifocal bilateral airspace disease, left greater than right. 2. There appears to be left-sided postobstructive atelectasis with decreased left-sided pulmonary volume and shift of mediastinum and heart towards the left. Electronically Signed: Isamar Merida MD at 0:04 EST ,
--- NOTE | 2022-09-21 23:06 | EX.ED.DYSGE1 ---
HPI History of Present Illness Chief Complaint: Palpitations Informant: patient Narrative Narrative: Patient presents with dyspnea. Takes quite a bit of questioning to try to get details from this patient. It sounds like he came in tonight because he got short of breath that started about 5 or 10 minutes after using the restroom. He states using the restroom was totally normal. He states he started get short of breath but sometimes he does get short of breath due to COPD. But he states that his shortness of breath seems different. He denies chest pain. He does have some pain in his back but he then tells me that that is been going on for somewhere between 1 and 3 months and is no different today than it has been. He states that everything went bad after he started Trelegy about 8 months ago. But he cannot tell me what his symptoms are that went bad. He does have high blood pressure and COPD. He has never had heart disease stents or bypass surgery. He denies any history of any dysrhythmia atrial fibrillation or atrial flutter. Only new medication is Trelegy and that was about 8 months ago. Denies recent travel. Denies leg pain or swelling. Denies history of DVT or PE. Denies history of thyroid disease. Denies being ill recently such as coughing fevers nausea vomiting or diarrhea. He denies being on anticoagulation other than aspirin. [facility] Medical History (Updated 09/22/22 @ 04:[address] Sravan Ventura MD) HTN (hypertension) Home Medications aspirin 81 mg tablet,delayed release (Adult Low Dose Aspirin) 81 mg PO DAILY health maintenance 12/05/16 [History Last Taken 05/16/19] multivitamin (Multiple Vitamins tablet) 1 ea PO DAILY 12/05/16 [History Last Taken Unknown] chlorthalidone 25 mg tablet 25 mg PO DAILY diuretic/blood pressure 05/16/19 [History Last Taken 05/16/19] losartan 100 mg tablet 100 mg PO DAILY heart/blood pressure 05/16/19 [History Last Taken 05/16/19] Allergy/AdvReac Type Severity Reaction Status Date / Time No Known Allergies Allergy Verified 09/21/22 23:03 Social History Smoking Status: Light Smoker (<10/day) [facility] ED Constitutional Constitutional ED: Denies chills or fever(s) ENT ENT ED: Denies rhinorrhea or sore throat Cardiovascular Cardiovascular: Reports racing heartbeat; Denies chest pain Respiratory/Chest Respiratory/Chest: Reports cough, dyspnea and other Details: He admits to a cough but states that he always coughs. He has no sputum production. Gastrointestinal Gastrointestinal: Denies abdominal pain, constipation, diarrhea, nausea or vomiting Genitourinary Genitourinary ED: Denies dysuria or hematuria Musculoskeletal Musculoskeletal: Reports back pain Integumentary Denies Abrasions or rash Neurologic Neurologic: Denies headache(s) or weakness Endocrine Endocrinology: Denies polydipsia or polyuria Hematologic/Lymphatic Hematologic/Lymphatic: Denies easy bleeding or easy bruising Allergic/Immunologic Allergic/Immunologic ED: Denies urticaria EXAM Physical Exam Narrative Exam Narrative: Patient is lying in bed on nonrebreather. He is awake and alert. He is not the best informant for details but he is not at all disoriented. He looks ill but not toxic. He still has good color. HEENT shows moist mucous membranes Neck shows no visible JVD Lungs actually do not sound bad. He is not wheezing. I do not hear rales. Heart is irregular and tachycardic and appears to be atrial fibrillation on the monitor. I am not able to hear any murmur. Abdomen is soft, nondistended and nontender No notable back tenderness or CVA tenderness. No suprapubic tenderness Extremities do not show edema cords or asymmetry Neurologically he is awake alert oriented x3. No focal deficit. He is not sleepy or lethargic. Skin no diaphoresis pallor or mottling Const Vital Signs: 09/21/22 22:56 09/21/22 23:07 09/21/22 23:30 Temperature 96.1 F L Temperature Source Temporal Pulse Rate 138 H 127 H Respiratory Rate 30 H 35 H Respiratory Effort Short of Breath Labored Respiratory Pattern Tachypnea Blood Pressure 119/83 H 80/57 L Blood Pressure Mean 95 64 Blood Pressure Source Blood Pressure Position Semi-Fowlers Blood Pressure Location Right Arm Pulse Ox 100 Oxygen Delivery Method Non-Rebreather Non-Rebreather Oxygen Flow Rate (L/min) 09/21/22 23:45 09/22/22 00:00 09/22/22 00:15 Temperature Temperature Source Pulse Rate 108 H 112 H 122 H Respiratory Rate 40 H 27 H 30 H Respiratory Effort Respiratory Pattern Blood Pressure 99/77 81/58 L 86/71 L Blood Pressure Mean 84 65 76 Blood Pressure Source Blood Pressure Position Semi-Fowlers Semi-Fowlers Semi-Fowlers Blood Pressure Location Right Arm Right Arm Right Arm Pulse Ox 99 Oxygen Delivery Method Non-Rebreather Oxygen Flow Rate (L/min) 09/22/22 00:30 09/22/22 02:29 09/22/22 01:00 Temperature 96.4 F L Temperature Source Axillary Pulse Rate 112 H 83 102 H Respiratory Rate 20 H 18 21 H Respiratory Effort Respiratory Pattern Blood Pressure 97/74 87/62 L 107/58 L Blood Pressure Mean 81 70 74 Blood Pressure Source Monitor Blood Pressure Position Semi-Fowlers Semi-Fowlers Semi-Fowlers Blood Pressure Location Right Arm Right Arm Right Arm Pulse Ox 97 Oxygen Delivery Method Room Air Oxygen Flow Rate (L/min) 09/22/22 01:30 09/22/22 01:50 09/22/22 02:00 Temperature Temperature Source Pulse Rate 94 88 92 Respiratory Rate 18 23 H 22 H Respiratory Effort Respiratory Pattern Blood Pressure 93/58 L 93/64 84/62 L Blood Pressure Mean 69 73 69 Blood Pressure Source Blood Pressure Position Semi-Fowlers Semi-Fowlers Semi-Fowlers Blood Pressure Location Right Arm Right Arm Right Arm Pulse Ox 100 Oxygen Delivery Method Non-Rebreather Oxygen Flow Rate (L/min) 09/22/22 02:15 09/22/22 02:30 09/22/22 02:44 Temperature 97.7 F L Temperature Source Temporal Pulse Rate 94 90 86 Respiratory Rate 24 H 23 H 25 H Respiratory Effort Respiratory Pattern Blood Pressure 87/62 L 81/50 L 86/50 L Blood Pressure Mean 70 60 62 Blood Pressure Source Monitor Blood Pressure Position Semi-Fowlers Semi-Fowlers Semi-Fowlers Blood Pressure Location Right Arm Right Arm Right Arm Pulse Ox 99 97 99 Oxygen Delivery Method Nasal Cannula Nasal Cannula Nasal Cannula Oxygen Flow Rate (L/min) 4 3 3 09/22/22 03:00 09/22/22 03:44 09/22/22 03:00 Temperature 97.1 F L Temperature Source Temporal Pulse Rate 87 80 78 Respiratory Rate 19 H 22 H 20 H Respiratory Effort Respiratory Pattern Blood Pressure 97/64 98/63 90/62 Blood Pressure Mean 75 74 71 Blood Pressure Source Monitor Blood Pressure Position Semi-Fowlers Semi-Fowlers Blood Pressure Location Right Arm Right Arm Pulse Ox 100 100 100 Oxygen Delivery Method Nasal Cannula Nasal Cannula Nasal Cannula Oxygen Flow Rate (L/min) 3 3 2 09/22/22 03:30 09/22/22 04:44 09/22/22 05:02 Temperature 96.9 F L 96.8 F L Temperature Source Temporal Temporal Pulse Rate 84 88 82 Respiratory Rate 18 23 H 22 H Respiratory Effort Respiratory Pattern Blood Pressure 91/54 L 96/54 L 95/60 Blood Pressure Mean 66 68 71 Blood Pressure Source Monitor Monitor Blood Pressure Position Semi-Fowlers Semi-Fowlers Semi-Fowlers Blood Pressure Location Right Arm Right Arm Right Arm Pulse Ox 100 98 98 Oxygen Delivery Method Nasal Cannula Nasal Cannula Nasal Cannula Oxygen Flow Rate (L/min) 2 2 2 09/22/22 05:41 09/22/22 06:34 Temperature 97.1 F L 97.2 F L Temperature Source Temporal Temporal Pulse Rate 78 89 Respiratory Rate 20 H 21 H Respiratory Effort Respiratory Pattern Blood Pressure 89/63 L 98/46 L Blood Pressure Mean 71 63 Blood Pressure Source Monitor Monitor Blood Pressure Position Semi-Fowlers Semi-Fowlers Blood Pressure Location Right Arm Right Arm Pulse Ox 100 100 Oxygen Delivery Method Nasal Cannula Nasal Cannula Oxygen Flow Rate (L/min) 2 2 MDM MDM MDM Narrative Medical decision making narrative: 23:30 I was called in the room as the patient started complaining of left leg pain. It sounds like this just started in the last maybe 20 or 30 minutes. Again he is not the best informant for details. It takes quite a bit of asking to try to get the sequence of events and what is new or different. His left leg does look pale at the toes. Both legs look a little bit mottled now but his blood pressure also dropped. I asked him again about the back pain he states this is completely unchanged and not new or different. Its been going off and on for somewhere 3 to 8 months but has been constant for a month. I ask about any abdominal pain and he says he did not have any abdominal pain. And when I asked him if he is sure he then stated he had some pain and he points toward the right upper quadrant. I ask him when he had that. He states he had that for just about 1 minute when the ambulance showed up but its not there now. He denies history of AAA. I able to feel femoral pulses on both sides. But is difficult to get good dopplerable pulses past that. At this point I am concerned about more significant vascular injury so we will get CTA of the chest abdomen and pelvis. I looked on her computer. I do not have any prior CTAs or ultrasounds of the abdomen. We are having our ultrasound brought into the room so we can do a bedside ultrasound to look at his aorta if able. 23:55 I discussed the case and some my concerns with nursing staff. Patient initially told me he had a normal bowel movement with no blood or black. But he told EMS that he did have a black bowel movement. He told me he had no nausea or vomiting. But he told nurses he vomited blood. We have been having trouble getting consistent history from this patient. This may be due to pain and distraction. I was ordering type and cross when his blood counts came back. He has a very high white count and low hemoglobin at 7.4. My last labs are from 2019. It now sounds like the patient vomited blood and had a black bowel movement. I have done type and cross for 4 units. I also did a bedside ultrasound. I do not see a AAA in his abdomen. 01:00 patient has been rechecked multiple times. I will try to get more history from him. Patient is not actually feeling the palpitations. This leads me to believe that he may have had atrial fibrillation going on a while but I do not know that. I did find one prior EKG from 16 May 2019 that could be atrial fibrillation versus a very large number of PACs together. My suspicion is that that might have been A-fib at the time. When I asked the patient about vomiting blood he denies it. But then I talked about the color and it sounds like he did vomit black material this evening. He had initially denied nausea and vomiting. But he states he is not nauseated now and does not feel like he needs to vomit. He also had a black bowel movement earlier. It sounds like these were the first ones he has had. He is not on any nonsteroidals. He does take baby aspirin only. He again denies any other anticoagulation. When I asked him about coughing he states has been coughing maybe a little bit more recently. I asked if that was in the last few days or a week and then he states maybe. But he states he coughs a lot with COPD that he is not really sure if he has been coughing more recently. He was talking with his son. Evidently it sounds like he has been getting weak recently. He has actually been crawling around his house at times due to weakness and pains in his legs and back. But I cannot get when that started. At this time, I am suspicious that the patient may have some longer standing atrial fibrillation. And he may have a recent GI bleed and possibly even aspiration or community-acquired pneumonia. I have given him now 30 cc/kg. His diltiazem is at 15 mg an hour. Even at that height, his blood pressure is now 104 systolic. His heart rate is down to anywhere 95-1 05. He is feeling better and looking better. I think he will improve more when we get blood transfused. There is no sign of active bleeding now. I am awaiting CT reading. My independent interpretation of the patient's CT does not show dissection or aneurysm. It does show pneumonia or possible mass in the left upper lobe area. Final reading the CT is similar. But their reading cavitary lesion in the left upper lobe. 01:50 patient's heart rate is down even as low as the upper 80s now. His blood pressure is about 104. He is complaining of pain. His back pain is actually in the left upper back likely in the area where this cavitary lesion exists. He has been having that pain for months. I will give him a small dose of fentanyl. We may cut down his diltiazem from 15 to 10 mg an hour as his heart rate is slowed. I would rather have his blood pressure good with a slightly higher heart rate. We are waiting blood for transfusion. Patient is awake and alert. He is overall feeling better. This is a complex patient. My suspicion is that the pain he has been having in his back is likely due to this cavitary lesion that may be a lung cancer. I cannot rule out infectious or postobstructive infection. Therefore he was given antibiotics especially with his high white count. I think his atrial fibrillation might not be acute but was worsened with increased rate due to significant anemia. My suspicion is that his primary issue was that his black bowel movement and vomitus consistent with a relatively acute GI bleed. He does not appear to be continuing to bleed at this time. No further bowel movements and no vomiting. I have given him pantoprazole. We are transfusing blood and I talked with him about the reasons for this risks and benefits. I talked to our hospitalist. But I do not have gastroenterology available. This is a complex patient with multiple medical issues and will likely need ICU stay. I did call to [facility]. None of them have beds and/or GI coverage that can support this individual. They are out of any critical care beds. I have called [facility]. They think they might have 1 bed in [place] that can see this patient. They are checking and waiting to give me a call back. 03:30 I discussed the case with staff up at [facility] intensive care unit. I explained complex issues on this patient including his blood work studies treatment so far in response. Patient is excepted to Dr. Fleming up there. We are waiting a bed. I rechecked the patient. He is actually resting comfortably. His heart rate is now down in the mid 80s to 90s with his diltiazem at 10 mg an hour. Blood pressure is 97 systolic. I will see if we can turn diltiazem down a little bit more. I think as this patient gets fluids bloods and treatment he is improving. We have not had a recurrence of GI bleeding. But he still has a complex presentation. Repeat lactate is pending. This will most likely come down more once he gets blood infused. 04:35 patient's lactate has come down quite a bit to 2.8. His heart rate is now down in the 70s and his diltiazem is down to 5 mg. His blood pressure is running about 94 systolic. He is feeling better. He just got his first unit of blood in. We are starting the second unit plate area his saturations are 98 to 100% on just 2 L now showing improvement. Overall, his blood pressure has remained the same despite diltiazem. But his heart rate is down, he feels better, his lactate is down and he is showing general trend toward improvement. 06:35 patient's been watched more. A spoke again with [facility] about half an hour ago. We updated them on his condition and his improving lactate. Patient states he is feeling better. He does not have any pain now. He states his breathing is good. He is only on 2 L of oxygen and had 100% sats now. Blood pressure 96 systolic. He has not had any further bleeding. He states he just overall feels better. He is looking a lot better 2. He is part way through the second unit of blood. Diltiazem is at 5 with a heart rate of about 85-95. Lab Data Attestation: I reviewed the patient's lab results. Labs: Laboratory Results - last 24 hr 09/21/22 09/21/22 09/21/22 23:15 23:28 23:28 WBC 35.2 H* RBC 2.64 L Hgb 7.4 L Hct 23.8 L MCV 90.2 MCH 28.0 MCHC 31.1 L RDW Std Deviation 52.8 H RDW Coeff of Edi 15.9 H Plt Count 728 H MPV 9.5 Immature Gran % (Auto) 4.500 H Neut % (Auto) 83.0 H Lymph % (Auto) 8.[address] [place] % (Auto) 3.5 Eos % (Auto) 0.1 Baso % (Auto) 0.2 Absolute Neuts (auto) 29.2 H Absolute Lymphs (auto) 3.07 Nucleated RBC % 0 Diff Path Review May foll Platelet Estimate MKD INC Anisocytosis 1+ Sodium 137 Potassium 2.9 L Chloride 100 Carbon Dioxide 15.0 L Anion Gap 22 H BUN 46 H Creatinine 2.08 H Estim Creat Clear Calc 32.10 Est GFR (MDRD) Af Amer 41 L Est GFR (MDRD) Non-Af 34 L BUN/Creatinine Ratio 22.1 H Glucose 245 H Lactic Acid 13.3 H* Calcium 8.9 Troponin I High Sens 13 B-Natriuretic Peptide TSH 1.71 Blood Type Antibody Screen Crossmatch 09/21/22 09/22/22 09/22/22 23:28 00:07 03:37 WBC RBC Hgb Hct MCV MCH MCHC RDW Std Deviation RDW Coeff of Edi Plt Count MPV Immature Gran % (Auto) Neut % (Auto) Lymph % (Auto) [place] % (Auto) Eos % (Auto) Baso % (Auto) Absolute Neuts (auto) Absolute Lymphs (auto) Nucleated RBC % Diff Path Review Platelet Estimate Anisocytosis Sodium Potassium Chloride Carbon Dioxide Anion Gap BUN Creatinine Estim Creat Clear Calc Est GFR (MDRD) Af Amer Est GFR (MDRD) Non-Af BUN/Creatinine Ratio Glucose Lactic Acid 2.8 H* Calcium Troponin I High Sens B-Natriuretic Peptide 49.2 TSH Blood Type B POSITIVE Antibody Screen NEGATIVE Crossmatch See Detail Radiography Diagnostic Testing: Clinical Impression(s) from Imaging Studies Chest X-Ray 09/21/22 23:03 IMPRESSION: 1. Multifocal bilateral airspace disease, left greater than right. 2. There appears to be left-sided postobstructive atelectasis with decreased left-sided pulmonary volume and shift of mediastinum and heart towards the left. Electronically Signed: Isamar Merida MD at 0:04 EST , Chest/Abdomen/Pelvis CTA 09/22/22 00:[address]: 1[address] No [address] evidence for hemodynamically significant stenosis, thrombosis or dissection. 2. No CT evidence for pulmonary embolus. 3. Large left upper lobe cavitary mass with left-sided hilar lymphadenopathy. 4. Loculated left-sided pleural collection. 5. Comparison there are right-sided inguinal hernia without obvious bowel obstruction. 6. Cholelithiasis. 7. Abnormal thickening of the wall of the urinary bladder may be secondary to chronic urinary tract outlet obstruction. 8. Moderate prostate enlargement. 9. Colonic diverticulosis without obvious diverticulitis. 10. Nonspecific left adrenal mass. Electronically Signed: Isamar Merida MD at 1:22 EST , EKG Initial EKG: Comments: My independent interpretation of EKG done for tachycardia shows atrial fibrillation with overall rate of 141. There is an occasional PVC. Nonspecific ST and T wave changes possibly related to rate. No sign of ST elevation. QRS duration is normal. QTc is a bit long at 493 ms Critical Care Time Critical Care Time: Yes Critical care time (excluding procedures): 75-104 minutes, Discussing w/Patient &/or Family/[employer], Discussing w/Consultants, Arranging Admission or Transfer, Performing Direct Patient Care at Bedside and - (90 minutes. Multiple reeval's, changing therapies, changing meds, repeat testing, arranging transfer, documentation) Discharge Plan Triage Chief Complaint: Palpitations ED Provider: Sravan Ventura Dx/Rx/DC Orders Clinical Impression: Acute GI bleeding, Anemia, Acidosis, lactic, Mass of left lung, Atrial fibrillation, rapid, Hypokalemia, Hypotension Prescriptions: No Action aspirin [Adult Low Dose Aspirin] 81 MG tablet,delayed release (DR/EC) 81 mg PO DAILY multivitamin [Multiple Vitamins] 1 EACH tablet 1 ea PO DAILY losartan 100 MG tablet 100 mg PO DAILY chlorthalidone 25 MG tablet 25 mg PO DAILY Primary Care Provider: Jung Bennett Referrals: Jung Bennett MD [Primary Care Provider] - Disposition Disposition: Acute Care Hospital
[2022-09-21] MEDS: 0.9% Normal Saline 1,000 ML 999 ML IV (23:14)
[2022-09-21 23:30] VITALS: BP 80/57; PULSE 127; RESP 35; O2SAT 100
[2022-09-21 23:45] VITALS: BP 99/77; PULSE 108; RESP 40; O2SAT 99
[2022-09-21 23:48] LABS: Absolute Lymphocyte Count 3.07 X10^3/uL (0.83-4.51); Absolute Neutrophil Count 29.2 X10^3/uL (2.0-7.7); Basophil# 0.07 X10^3/uL; Basophil% 0.2 % (0-1); Eosinophil# 0.02 X10^3/uL; Eosinophils% 0.1 % (0-5); Hematocrit 23.8 % (40-54); Hemoglobin 7.4 g/dL (13.0-16.5); Lymphocyte # 3.07 X10^3/ul (0.83-4.51); Lymphocyte % 8.7 % (19-41); Mean Corp Hgb Conc 31.1 g/dL (32-36); Mean Corpuscular Volume 90.2 fL (80-94); Mean Platelet Vol. 9.5 fl (6.2-12.0); Monocyte# 1.22 X10^3/uL; Monocyte% 3.5 % (0-10); NRBC Flagged by Analyzer 0 % (0-5); Neutrophil # 29.21 X10^3/uL (2.7-7.7); POSITIVE COUNT YES; POSITIVE DIFFERENTIAL YES; Platelet Count 728 K/mm3 (150-450); RBC Distribution Width CV 15.9 % (11.6-14.6); RBC Distribution Width SD 52.8 fl (35.1-43.9); Red Blood Count 2.64 M/mm3 (4.6-6.2); White Blood Count 35.2 K/mm3 (4.4-11.0)
[2022-09-21 23:53] LABS: Differential Indicated SCAN CRITERIA MET
[2022-09-22] VITALS (18 sets, daily range): BP systolic 81–107; BP diastolic 46–74; PULSE 78–122; RESP 18–30; TEMP 35.8–36.5; O2SAT 97–100
--- NOTE | 2022-09-22 | CT_ITS ---
STUDY: CTA CHEST AND CTA ABDOMEN/PELVIS WITH CONTRAST REASON FOR EXAM: Male, 72 years old patient with chest pain with hypotension RADIATION DOSAGE (If Supplied By Facility): DLP = ( 1375.02 ) mGycm TECHNIQUE: The examination was performed with the intravenous administration of 100 mL of Isovue-370. Post-processing of the angiographic images was performed, with multiplanar reformation and 3D reconstruction. Individualized dose optimization techniques were used for this CT. COMPARISON: No relevant priors. FINDINGS: CTA Chest Normal enhancement of the main pulmonary artery and right and left pulmonary arteries. Normal enhancement of the bilateral peripheral pulmonary arteries. There is no demonstrated pulmonary embolism. There is mild atherosclerotic calcification of the aortic arch with tortuosity. There is no demonstrated aortic dissection. Normal heart and pericardium. There are calcifications of the coronary arteries. Normal mediastinum. There appears to be a left-sided hilar lymphadenopathy that measures approximately 4.9 x 5.6 x 4.8 cm in size. This is contiguous with a cavitary process in the left upper lobe. Normal visualized trachea and bronchi. The lungs are hyperexpanded, with flattening of the hemidiaphragms. There is a large cavitary lesion left upper lobe measuring approximately 11.1 x 8.1 x 7.8 cm. There is a large collection of gas in the center of this lesion suggesting cavitation. The mass abuts the posterior chest wall. There is decreased left-sided pulmonary volume. There is patchy groundglass attenuation and interstitial thickening within the right lower lobe and right middle lobe that may represent sequela of atypical infection. As the nodular areas in the right middle lobe with the largest nodule measuring approximately 1.6 cm in size. There is some pleural thickening of the right-sided minor fissure.. There appears to be a loculated left-sided pleural collection in addition to left apical pleural thickening. Normal chest wall structures. Bones are osteopenic. There are multiple compression fractures of the thoracic spine. There is increased thoracic kyphosis. Visualized sternum and ribs appear to be intact. CTA of Abdomen and Pelvis Descriptors of Narrowing: None (0%) Mild (< 50%) Moderate (50-70%) Severe (70-90%) Subtotal/Total Occlusion (90-100%) Non-Evaluable (technically non-diagnostic) Abdominal aorta: There is multifocal atherosclerotic calcification and noncalcified atherosclerotic plaque of the abdominal aorta without luminal narrowing. Celiac and superior mesenteric arteries: There is some variant anatomy in the region of the celiac axis with two small arteries present instead of the usually prominent celiac axis. The superior mesenteric artery is patent. Inferior mesenteric artery: No demonstrated narrowing. Right renal artery(arteries): The right renal artery is small in size but generally patent. Left renal artery(arteries): No demonstrated narrowing. Right common iliac artery: No demonstrated narrowing. Right external iliac artery: There is mild diffuse narrowing. Right internal iliac artery: There is mild diffuse narrowing. Left common iliac artery: No demonstrated narrowing. Left external iliac artery: There is mild diffuse narrowing. Left internal iliac artery: There is mild diffuse narrowing. CT Abdomen T Pelvis Normal liver. There are multiple gallstones. Normal spleen. Normal pancreas. There is a left-sided adrenal mass measuring up to 3.4 x 2.1 x 3 cm in size. The right adrenal gland has a normal appearance. There is mild cortical atrophy of the right kidney, consistent with chronic medical renal disease. There is mild cortical atrophy of the left kidney, consistent with chronic medical renal disease. Normal visualized stomach. There is no obvious dilated bowel, ascites or pneumoperitoneum. Small bowel has a generally normal appearance. Minimal solid stool is visible in the colon. The colon is nondistended with scattered diverticula. The appendix is visualized and appears normal. There is diffuse atherosclerotic calcification of the abdominal aorta, without a demonstrated aneurysm. Normal inferior vena cava. Normal retroperitoneum. Urinary bladder wall is abnormally thickened measuring up to 6.7 mm in thickness. There is enlargement of the prostate gland. There is a right-sided inguinal hernia containing a probable incarcerated small bowel. There is no obvious evidence of bowel obstruction. There are diffuse degenerative changes of the visualized lumbar spine. CT/CTA Chst, Abd, Pel W and/or WO IMPRESSION: 1. No CT evidence for hemodynamically significant stenosis, thrombosis or dissection. 2. No CT evidence for pulmonary embolus. 3. Large left upper lobe cavitary mass with left-sided hilar lymphadenopathy. 4. Loculated left-sided pleural collection. 5. Comparison there are right-sided inguinal hernia without obvious bowel obstruction. 6. Cholelithiasis. 7. Abnormal thickening of the wall of the urinary bladder may be secondary to chronic urinary tract outlet obstruction. 8. Moderate prostate enlargement. 9. Colonic diverticulosis without obvious diverticulitis. 10. Nonspecific left adrenal mass. Electronically Signed: Isamar Merida MD at 1:22 EST ,
[2022-09-22 00:01] LABS: Anion Gap 22 (5-15); BUN 46 mg/dL (7-18); BUN/Creat Ratio 22.1 RATIO (10-20); Calcium,Total 8.9 mg/dL (8.5-10.1); Chloride 100 mmol/L (98-107); Creatinine, Serum 2.08 mg/dL (0.70-1.30); EST Glomerular Filtration Rate 34 mL/min (>60); Est Glom Filt Rate - Afr Amer 41 mL/min (>60); Glucose 245 mg/dL (74-106); Potassium 2.9 mmol/L (3.5-5.1); Sodium Level 137 mmol/L (136-145); Thyroid Stim Hormone (TSH) 1.71 uIU/mL (0.358-3.74); Troponin-I HS 13 pg/mL (3.0-78.0)
[2022-09-22 00:14] LABS: BNP,B-Type NATRIURETIC PEPTIDE 49.2 pg/mL (0-100)
[2022-09-22 00:29] LABS: Lactic Acid 13.3 mmol/L (0.4-1.9)
[2022-09-22 00:37] LABS: Anisocytosis 1+; Platelet Estimate MKD INC (ADEQ)
[2022-09-22] MEDS: fentaNYL 100 MCG/2 ML Ampul 25 MCG IV (02:04)
[2022-09-22 03:19] LABS: Reflex Lactate? Y
[2022-09-22 04:13] LABS: Lactic Acid 2.8 mmol/L (0.4-1.9)
--- NOTE | 2022-09-22 06:01 | NURSING ---
this RN called report to [facility] ICU. Report given to Kylee. Transport to be here around 0600, RN asked us to call when patient leaves
[2022-09-22 13:19] LABS: Pathologist Review Reviewed
== END 2022-09-22 07:00 | disposition short-term general hospital (02) ==
PROVIDERS: Emergency Provider Emergency Medicine; PCP Family Medicine; Visit Provider Emergency Medicine
DX: K92.2 Gastrointestinal hemorrhage, unspecified (principal); I48.91 Unspecified atrial fibrillation; I10 Essential (primary) hypertension; F17.200 Nicotine dependence, unspecified, uncomplicated; D64.9 Anemia, unspecified; E87.20 Acidosis, unspecified; R91.8 Other nonspecific abnormal finding of lung field; E87.6 Hypokalemia; I95.9 Hypotension, unspecified; R06.02 Shortness of breath; Z79.82 Long term (current) use of aspirin; Z79.899 Other long term (current) drug therapy
CPT/HCPCS: 36415; 36430; 71045; 71275; 74174; 80048; 83605; 83880; 84443; 84484; 85025; 86850; 86900; 86901; 86920; 86922; 87040; 87428; 93005; 96365; 96366; 96375; 99285; J7030; J7040; P9016; Q9967; A4216; J3490